=== PATIENT | male | born 1980 | race American Indian/Alaskan Native ===

== ENCOUNTER 2018-11-16 07:19 | Emergency (ER) | payer SELFPAY ==
[2018-11-16 08:00] VITALS: BP 104/63
--- NOTE | 2018-11-16 08:49 | Emergency Department Report ---
ED Extremity Problem HPI - General Chief complaint: Extremity Problem,Nontraumatic Stated complaint: RT FOOT SWELLING Time Seen by Provider: 11/16/18 08:24 Source: patient Mode of arrival: Ambulatory Limitations: No Limitations - History of Present Illness Initial comments: 38 yo M presents to ED with complaint of right foot swelling. Also reports pain on top of the foot that radiates up to the inner thigh. Patient denies injury, fever, redness. Pt reports that he elevated the foot and this alleviated most of the swelling. MD Complaint: extremity swelling -: days(s) (3) Location: right, other (foot) History of Same: No Radiation: proximal Quality: other ("soreness") Consistency: constant Improves with: elevation Worsens with: palpation Associated Symptoms: denies: chest pain, shortness of breath, fever - Related Data Previous Rx's Medication Instructions Recorded Last Taken Type Clindamycin HCl [Clindamycin Oral] 150 mg PO QID 10 Days capsule 11/25/13 Unknown Rx HYDROcodone/APAP 7.5-325 [[place] 1 each PO Q8HR PRN #10 tablet 11/25/13 Unknown Rx 7.5-325 mg TAB] Naproxen [Naprosyn] 500 mg PO BID #20 tablet 11/16/18 Unknown Rx Allergies Allergy/AdvReac Type Severity Reaction Status Date / Time No Known Allergies Allergy Verified 11/25/13 18:46 ED Review of Systems ROS: Stated complaint: RT FOOT SWELLING Other details as noted in HPI Comment: All other systems reviewed and negative Constitutional: denies: chills, fever Respiratory: denies: shortness of breath Cardiovascular: denies: chest pain Musculoskeletal: as per HPI ED Past Medical Hx - Past Medical History Hx Hypertension: No Hx CVA: No Hx Heart Attack/AMI: No Hx Congestive Heart Failure: No Hx Diabetes: No Hx Pulmonary Embolism: No Hx GERD: No Hx Arthritis: No Hx Headaches / Migraines: No Hx Psychiatric Treatment: No Hx Asthma: No Hx Tuberculosis: No Hx HIV: No - Surgical History Hx Coronary Stent: No Hx Open Heart Surgery: No Hx Pacemaker: No Hx Cholecystectomy: No Hx Appendectomy: No Hx Breast Surgery: No - Social History Smoking Status: Current Some Day Smoker Substance Use Type: Marijuana - Medications Home Medications: Home Medications Medication Instructions Recorded Confirmed Last Taken Type Clindamycin HCl [Clindamycin Oral] 150 mg PO QID 10 Days capsule 11/25/13 Unknown Rx HYDROcodone/APAP 7.5-325 [[place] 1 each PO Q8HR PRN #10 tablet 11/25/13 Unknown Rx 7.5-325 mg TAB] Naproxen [Naprosyn] 500 mg PO BID #20 tablet 11/16/18 Unknown Rx ED Physical Exam - General Limitations: No Limitations General appearance: alert, in no apparent distress - Head Head exam: Present: atraumatic, normocephalic - Eye Eye exam: Present: normal appearance - ENT ENT exam: Present: mucous membranes moist - Neck Neck exam: Present: normal inspection - Respiratory Respiratory exam: Present: normal lung sounds bilaterally. Absent: respiratory distress - Cardiovascular Cardiovascular Exam: Present: regular rate, normal rhythm - GI/Abdominal GI/Abdominal exam: Absent: distended - Extremities Exam Extremities exam: Present: other (trace edema to right foot, no erythema present, slight tenderness to anterior foot; no right lower leg swelling present, no calf tenderness; DP pulse normal, cap refill nml, foot is warm, normal color) - Neurological Exam Neurological exam: Present: alert, oriented X3, CN II-XII intact. Absent: motor sensory deficit - Psychiatric Psychiatric exam: Present: normal affect, normal mood - Skin Skin exam: Present: warm, dry, intact, normal color ED Course Vital Signs 11/16/18 07:57 Temperature 98.9 F Pulse Rate 76 Respiratory 18 Rate Blood Pressure 104/63 [Left] O2 Sat by Pulse 97 Oximetry - Reevaluation(s) Reevaluation #1: 11/16/18 09:02 US neg for DVT ED Medical Decision Making - Radiology Data Radiology results: report reviewed - Medical Decision Making - US neg for DVT - likely inflammatory process - rx for naprosyn - outpt f/u advised - return precautions given - Differential Diagnosis DVT, inflammation Critical care attestation.: If time is entered above; I have spent that time in minutes in the direct care of this critically ill patient, excluding procedure time. ED Disposition Clinical Impression: Lower extremity pain, right Disposition: DC-01 TO HOME OR SELFCARE Is pt being admited?: No Condition: Stable Instructions: Arthralgia (ED) Prescriptions: Naproxen [Naprosyn] 500 mg PO BID #20 tablet Referrals: DINA TUCKER MD [Primary Care Provider] - 3-5 Days AZUCENA BATES MD [Staff Physician] - 3-5 Days Time of Disposition: 09:03
--- NOTE | 2018-11-16 09:40 | Vascular Lab Report ---
PROCEDURE: VL VENOUS DUPLEX LE RT TECHNIQUE: Duplex Doppler sonography of the right lower extremity. Manzano scale imaging with and witho ut compression, spectral waveform analysis with and without augmentation, and color flow Doppler were employed. HISTORY: pain, swelling COMPARISONS: None FINDINGS: Deep Venous Thrombus: None Superficial Venous Thrombus: None Venous valvular incompetence: None Soft tissue abnormality: None IMPRESSION: No evidence of deep venous thrombosis in the right lower extremity. This document is electronically signed by Padmini Jensen MD., November 16 2018 09:38:12 AM ET
== END 2018-11-16 09:30 | disposition home or self-care (01) ==
LOC: ED 07:19
DX: M79.671 Pain in right foot (principal); F17.200 Nicotine dependence, unspecified, uncomplicated; F12.10 Cannabis abuse, uncomplicated
CPT/HCPCS: 99283